=== PATIENT | male | born 1955 | race Caucasian/White ===

== ENCOUNTER 2017-03-08 19:59 | Emergency (ER) | payer OTHER ==
[2017-03-08] MEDS ORDERED: Proparacaine 0.5% Opth 15 ML BOT ONE (20:27)
[2017-03-08] MEDS ORDERED: Fluorescein Opthalmic Strip ONE (20:27)
[2017-03-08] MEDS ORDERED: Ciprofloxacin 0.3% Ophth Drops 2.5 ml Bottle L EYE SCH (22:00)
== END 2017-03-08 22:05 | disposition home or self-care (01) ==
LOC: ERS 19:59
DX: S05.02XA Injury of conjunctiva and corneal abrasion without foreign body, left eye, initial encounter (principal); E11.9 Type 2 diabetes mellitus without complications; E78.5 Hyperlipidemia, unspecified; I10 Essential (primary) hypertension; F17.210 Nicotine dependence, cigarettes, uncomplicated; Z79.899 Other long term (current) drug therapy; Z79.84 Long term (current) use of oral hypoglycemic drugs; W22.8XXA Striking against or struck by other objects, initial encounter
CPT/HCPCS: 99406